=== PATIENT | male | born 1945 | race Caucasian/White ===

== ENCOUNTER 2018-04-19 20:44 | Outpatient (REF) | payer MEDICARE, BC, SELFPAY ==
[2018-04-19 21:21] LABS: Abs Immature Grans 0.02 k/cumm (0.0-0.09); Absolute Basophil Count 0.03 k/cumm (0.0-0.2); Absolute Eosinophil Count 0.34 k/cumm (0.0-0.7); Absolute Lymphocyte Count 1.41 k/cumm (1.2-3.4); Absolute Monocyte Count 0.61 k/cumm (0.11-0.7); Absolute Neutrophil Count 4.91 k/cumm (1.2-6.7); Basophils % 0.4; Eosinophils % 4.6; HCT 46.4 % (40.0-50.0); HGB 15.8 g/dL (13.5-17.5); Immature Grans % 0.3; Lymphocytes % 19.3; Mean Corp. HGB Concentration 34.1 g/dL (32.0-36.0); Mean Corpuscular Hemoglobin 30.2 pg (27.0-33.0); Mean Corpuscular Volume 88.7 fL (80-95); Mean Platelet Volume 10.5 fL (8.0-11.0); Monocytes % 8.3; Neutrophils % 67.1; Platelet Count 299 x1000/uL (130-400); RBC 5.23 m/cumm (4.50-6.00); RBC Distribution Width 12.9 % (11.8-14.1); White Blood Cell Count 7.32 k/cumm (4.4-10.8)
[2018-04-19 21:40] LABS: ALT 40 U/L (12-78); AST 17 U/L (15-37); Albumin 3.8 g/dL (3.4-5.0); Alkaline Phosphatase 68 U/L (46-116); Anion Gap 8.2 mmol/L (3-11); BUN 18 mg/dL (7-18); Bilirubin, Total 0.9 mg/dL (0.2-1.0); CO2 26.8 mmol/L (21.0-32.0); CREATININE 0.89 mg/dL (0.70-1.30); Calcium 9.2 mg/dL (8.5-10.1); Chloride 104 mmol/L (98-107); Cholesterol 158 mg/dL (50-200); Glucose 118 mg/dL (70-100); HDL Cholesterol 47 mg/dL (40-60); LDL CHOLESTEROL 101 mg/dL (<100); Potassium 4.5 mmol/L (3.5-5.1); Sodium 139 mmol/L (136-145); Total Protein 6.4 g/dL (6.4-8.2); Triglyceride 104 mg/dL (30-150)
[2018-04-19 21:59] LABS: FREE T4 1.21 ng/dL (0.76-1.46)
[2018-04-19 22:14] LABS: Hemoglobin A1C 6.1 % (4.5-6.2)
== END 2018-04-19 21:04 ==
LOC: NCHCN 20:44
PROVIDERS: PCP Physician Assistant Medical; Visit Provider Physician Assistant Medical
DX: I10 Essential (primary) hypertension (principal); R73.01 Impaired fasting glucose; R61 Generalized hyperhidrosis
CPT/HCPCS: 80053; 80061; 83721; 83036; 84439; 84443; 85025

== ENCOUNTER 2019-11-18 13:19 | Outpatient (REF) | payer MEDICARE, BC, SELFPAY ==
[2019-11-18 20:18] LABS: Calculated LDL 106 mg/dL (<100); Cholesterol 172 mg/dL (<200); HDL Cholesterol 50 mg/dL (40-60); Triglyceride 82 mg/dL (<150)
[2019-11-18 20:19] LABS: Hemoglobin A1C 5.5 % (3.8-5.6)
== END 2019-11-18 13:39 ==
LOC: NCHCN 13:19
PROVIDERS: PCP Physician Assistant Medical; Visit Provider Physician Assistant Medical
DX: E11.9 Type 2 diabetes mellitus without complications (principal)
CPT/HCPCS: 80061; 83036

== ENCOUNTER 2020-06-04 19:06 | Outpatient (REF) | payer MEDICARE, BC, SELFPAY ==
[2020-06-04 19:36] LABS: Hemoglobin A1C 5.6 % (<5.7)
[2020-06-04 20:05] LABS: ALT 39 U/L (16-63); AST 19 U/L (15-37); Albumin 4.2 g/dL (3.4-5.0); Alkaline Phosphatase 67 U/L (46-116); Anion Gap 10.9 mmol/L (3-11); BUN 23 mg/dL (7-18); Bilirubin, Total 0.6 mg/dL (0.2-1.0); CO2 25.1 mmol/L (21.0-32.0); CREATININE 0.97 mg/dL (0.70-1.30); Calcium 9.3 mg/dL (8.5-10.1); Chloride 103 mmol/L (98-107); Glucose 99 mg/dL (74-106); Potassium 4.3 mmol/L (3.5-5.1); Sodium 139 mmol/L (136-145); Total Protein 6.8 g/dL (6.4-8.2)
== END 2020-06-04 19:26 ==
LOC: NCHCN 19:06
PROVIDERS: PCP Physician Assistant Medical; Visit Provider Physician Assistant Medical
DX: E11.9 Type 2 diabetes mellitus without complications (principal)
CPT/HCPCS: 80053; 83036

== ENCOUNTER 2021-01-04 04:39 | Outpatient (CLI) | payer MEDICARE, BC, SELFPAY ==
--- NOTE | 2021-01-04 09:35 | DI.MRI_ITS ---
Exam(s) MR LUMBAR SPINE WO EXAM: MR LUMBAR SPINE WO CLINICAL HISTORY: LT LUMBAR RADICULOPATHY,M54.16. TECHNIQUE: Multiplanar multisequence MRI of the Lumbar spine was performed. COMPARISON: CT ABD PELVIS WITH CONTRAST from 03/24/2013 CT ABD PELVIS WITH CONTRAST from 03/24/2013 FINDINGS: Bones: The last intervertebral disc space is designated the L5/S1 level for the numbering purpose of this examination. The vertebral body heights are well maintained. Alignment is satisfactory. The si gnal characteristics are unremarkable. Cord: The conus tip ends at the T12 level. It is of normal size and signal intensity. T12-L1: No disc herniations or bulges are present. L1-2: No disc herniations or bulges are present. Left-sided facet osteophyte encroaches mildly into the central canal. No neural foraminal narrowing. L2-3: Mild disc bulging greater laterally. Facet degenerative changes and ligamentous hypertrophy ca use narrowing of the transverse dimension of the central canal resulting in overall mild central can al stenosis. No significant neural foraminal narrowing.. L3-4: Mild broad-based disc bulging. Facet degenerative changes greater on the right as well as lig amentous hypertrophy combine to produce moderate central canal stenosis. No significant neural rene inal narrowing. L4-5: Disc height is normal. There are small endplate osteophytes. There is mild concentric disc b ulging. Moderate sized superimposed central and slightly left sided disc protrusion. Facet degenera tive changes and ligamentous hypertrophy combine with the disc protrusion to cause moderate to severe central canal stenosis. There is mild bony encroachment on the left neural foramen. L5-S1: Moderate loss of disc height. Endplate osteophytes and concentric disc bulging facet degener ative changes and ligamentous hypertrophy combine to produce mild central canal stenosis. There is m oderate to severe bilateral neural foraminal narrowing. Soft tissues: The visualized SI joints and sacrum are well maintained. The paraspinal soft tissues ar e unremarkable. IMPRESSION: focal L4-5 disc protrusion slightly eccentric toward the left combining with facet degenerative ley ges to cause moderate to severe central canal stenosis as well as mild left neural foraminal narrowin g. Moderate central canal stenosis at L3-4. Mild central canal stenosis at L2-3 and L5-S1. Moderat e to severe bilateral neural foraminal narrowing at L5-S1. DATA REPOSITORY:
== END 2021-01-04 04:59 ==
PROVIDERS: PCP Physician Assistant Medical; Visit Provider Physician Assistant Medical
DX: M51.16 Intervertebral disc disorders with radiculopathy, lumbar region (principal); M47.26 Other spondylosis with radiculopathy, lumbar region; M48.07 Spinal stenosis, lumbosacral region
CPT/HCPCS: 72148

== ENCOUNTER 2021-02-12 14:33 | Outpatient (REF) | payer MEDICARE, BC, SELFPAY ==
[2021-02-12 15:48] LABS: ALT 39 U/L (16-63); AST 16 U/L (15-37); Albumin 3.9 g/dL (3.4-5.0); Alkaline Phosphatase 70 U/L (46-116); Anion Gap 11.1 mmol/L (3-11); BUN 27 mg/dL (7-18); Bilirubin, Total 0.6 mg/dL (0.2-1.0); CO2 25.9 mmol/L (21.0-32.0); Calcium 9.1 mg/dL (8.5-10.1); Calculated LDL 118 mg/dL (<100); Chloride 106 mmol/L (98-107); Cholesterol 183 mg/dL (<200); Glucose 118 mg/dL (74-106); HDL Cholesterol 48 mg/dL (40-60); Potassium 4.4 mmol/L (3.5-5.1); Sodium 143 mmol/L (136-145); Total Protein 6.5 g/dL (6.4-8.2); Triglyceride 85 mg/dL (<150)
== END 2021-02-12 14:34 | disposition home or self-care (01) ==
LOC: NCHCN 14:33
PROVIDERS: PCP Physician Assistant Medical; Visit Provider Physician Assistant Medical
DX: I10 Essential (primary) hypertension (principal); Z86.39 Personal history of other endocrine, nutritional and metabolic disease
CPT/HCPCS: 80053; 80061

== ENCOUNTER 2022-02-28 12:19 | Outpatient (REF) | payer MEDICARE, BC, SELFPAY ==
[2022-02-28 15:13] LABS: Hemoglobin A1C 6.7 % (<5.7)
[2022-02-28 15:29] LABS: ALT 33 U/L (16-63); AST 17 U/L (15-37); Albumin 3.8 g/dL (3.4-5.0); Alkaline Phosphatase 85 U/L (46-116); BUN 19 mg/dL (7-18); Bilirubin, Total 0.4 mg/dL (0.2-1.0); CREATININE 0.9 mg/dL (0.70-1.30); Calcium 9.1 mg/dL (8.5-10.1); Calculated LDL 109 mg/dL (<100); Chloride 103 mmol/L (98-107); Cholesterol 177 mg/dL (<200); Estimated GFR 89.07 (mL/min/1.73m2); Glucose 135 mg/dL (74-106); HDL Cholesterol 45 mg/dL (40-60); Potassium 4.2 mmol/L (3.5-5.1); Sodium 139 mmol/L (136-145); Total Protein 7.1 g/dL (6.4-8.2); Triglyceride 118 mg/dL (<150)
[2022-03-03 08:00] LABS: PSA, Screening <0.1 ng/mL (<=6.5)
== END 2022-02-28 12:20 | disposition home or self-care (01) ==
LOC: NCHCN 12:19
PROVIDERS: PCP Physician Assistant Medical; Visit Provider Physician Assistant Medical
DX: I10 Essential (primary) hypertension (principal); R73.03 Prediabetes; C61 Malignant neoplasm of prostate; Z12.5 Encounter for screening for malignant neoplasm of prostate
CPT/HCPCS: 80053; 80061; 84153; 83036

== ENCOUNTER 2023-07-21 11:32 | Outpatient (REF) | payer MEDICARE, BC, SELFPAY ==
[2023-07-21 16:21] LABS: ALT 35 U/L (16-63); AST 18 U/L (15-37); Albumin 3.7 g/dL (3.4-5.0); Alkaline Phosphatase 77 U/L (46-116); Anion Gap 11.2 mmol/L (3-11); BUN 22 mg/dL (7-18); Bilirubin, Total 0.5 mg/dL (0.2-1.0); CO2 23.8 mmol/L (21.0-32.0); CREATININE 0.9 mg/dL (0.70-1.30); Calculated LDL 89 mg/dL (<100); Chloride 105 mmol/L (98-107); Cholesterol 157 mg/dL (<200); Estimated GFR 88.51 (mL/min/1.73m2); Glucose 116 mg/dL (74-106); HDL Cholesterol 59 mg/dL (40-60); Sodium 140 mmol/L (136-145); Total Protein 6.8 g/dL (6.4-8.2); Triglyceride 45 mg/dL (<150)
== END 2023-07-21 11:33 | disposition home or self-care (01) ==
LOC: NCHCN 11:32
PROVIDERS: PCP Physician Assistant Medical; Visit Provider Physician Assistant Medical
DX: I10 Essential (primary) hypertension (principal); R73.03 Prediabetes
CPT/HCPCS: 80053; 80061; 83036

== ENCOUNTER 2023-10-02 09:42 | Outpatient (REF) | payer MEDICARE, BC, SELFPAY ==
--- NOTE | 2023-10-02 08:50 | SKI_PTH ---
PATIENT: Shola Hernandez LOC: [facility] U#:[id number] AGE/SX: 77/M ROOM: RE10/02/[address]: Tristan Alexander DO : 1945 BED: DIS: 10/02/2023 SPEC #: [id number] RECD: 10/02/23 12:13 STATUS: OLIVIER REQ #: [id number] TOYIN: 10/02/23 08:[address]: Tristan Alexander DEPT: Surgical Specimen RECD BY: Nickie Hurley ENTERED: 10/02/23 12:15 SP TYPE: SKI OT DR: Shayne Sahni Tissues: 1 - SKIN BIOPSY(SHAVE/PUNCH) Procedures: IMMUNOPEROXIDASE STAIN SKIN LEVEL 4 Comments: [id number]
== END 2023-10-02 09:43 | disposition home or self-care (01) ==
LOC: LBN 09:42
PROVIDERS: PCP Physician Assistant Medical; Visit Provider Otolaryngology Otolaryngology/Facial Plastic Surgery
DX: D49.2 Neoplasm of unspecified behavior of bone, soft tissue, and skin (principal)
CPT/HCPCS: 88305; 88361

== ENCOUNTER 2024-02-22 13:58 | Outpatient (REF) | payer MEDICARE, BC, SELFPAY ==
[2024-02-22 16:16] LABS: Anion Gap 9.2 mmol/L (3-11); BUN 26 mg/dL (7-18); CO2 24.8 mmol/L (21.0-32.0); CREATININE 0.8 mg/dL (0.70-1.30); Calcium 8.9 mg/dL (8.5-10.1); Chloride 105 mmol/L (98-107); Estimated GFR 91.15 (mL/min/1.73m2); Glucose 100 mg/dL (74-106); Potassium 4.3 mmol/L (3.5-5.1); Sodium 139 mmol/L (136-145)
[2024-02-22 16:22] LABS: Hemoglobin A1C 5.9 % (<5.7)
== END 2024-02-22 13:59 | disposition home or self-care (01) ==
LOC: NCHCN 13:58
PROVIDERS: PCP Physician Assistant Medical; Visit Provider Physician Assistant Medical
DX: E11.9 Type 2 diabetes mellitus without complications (principal); I10 Essential (primary) hypertension
CPT/HCPCS: 80048; 83036

== ENCOUNTER 2024-08-16 15:41 | Outpatient (REF) | payer MEDICARE, BC, SELFPAY ==
[2024-08-16 16:24] LABS: BUN 31 mg/dL (7-18); CREATININE 1.1 mg/dL (0.70-1.30); Calcium 9.4 mg/dL (8.5-10.1); Cholesterol 159 mg/dL (<200); Estimated GFR 69.14 (mL/min/1.73m2); Glucose 151 mg/dL (74-106); HDL Cholesterol 45 mg/dL (>or=40); Triglyceride 104 mg/dL (<150)
[2024-08-16 16:25] LABS: ALT 28 U/L (16-63); AST 17 U/L (15-37); Albumin 3.7 g/dL (3.4-5.0); Alkaline Phosphatase 93 U/L (46-116); Anion Gap 9.8 mmol/L (3-11); Bilirubin, Total 0.46 mg/dL (0.2-1.0); CO2 24.2 mmol/L (21.0-32.0); Calculated LDL 94 mg/dL (<100); Chloride 108 mmol/L (98-107); Sodium 142 mmol/L (136-145); Total Protein 6.8 g/dL (6.4-8.2)
[2024-08-16 16:26] LABS: Hemoglobin A1C 6.6 % (<5.7)
== END 2024-08-16 15:42 | disposition home or self-care (01) ==
LOC: NCHCN 15:41
PROVIDERS: PCP Physician Assistant Medical; Visit Provider Physician Assistant Medical
DX: I10 Essential (primary) hypertension (principal); E11.9 Type 2 diabetes mellitus without complications
CPT/HCPCS: 80053; 80061; 83036